=== PATIENT | male | born 1960 | race Caucasian/White ===

== ENCOUNTER 2019-01-29 02:05 | Emergency (ER) | payer MEDICARE ==
[~2019-01-29] VITALS: Ht 172.7 cm; Wt 90.0 kg
[2019-01-29 02:15] VITALS: BP 142/93
[2019-01-29] MEDS ORDERED: ZOLP5TAB8 PO (02:28)
== END 2019-01-29 02:48 | disposition home or self-care (01) ==
LOC: ER 02:06
DX: G47.00 Insomnia, unspecified (principal); F41.9 Anxiety disorder, unspecified; F11.10 Opioid abuse, uncomplicated; Z79.899 Other long term (current) drug therapy
CPT/HCPCS: 99283

== ENCOUNTER 2019-02-09 13:26 | Emergency (ER) | payer MEDICARE ==
[~2019-02-09] VITALS: Ht 172.7 cm; Wt 90.9 kg
[~2019-02-09 13:26] MED LIST: ZOLP5TAB8 PO
[2019-02-09 13:43] VITALS: BP 171/102
== END 2019-02-09 16:20 | disposition left against medical advice (07) ==
LOC: ER 13:27
DX: G47.00 Insomnia, unspecified (principal); F11.20 Opioid dependence, uncomplicated; G89.29 Other chronic pain; F41.9 Anxiety disorder, unspecified; Z79.899 Other long term (current) drug therapy
CPT/HCPCS: 99281